=== PATIENT | female | born 1945 | race Caucasian/White ===

== ENCOUNTER 2016-09-03 15:49 | Observation (INO) | payer MEDICARE, BC ==
[2016-09-03] MEDS ORDERED: Sodium Chloride 0.9% 10 ML Syringe FLUSH PRN (16:24)
[2016-09-03] MEDS ORDERED: Sodium Chloride 0.9% 2.5 ML Syringe FLUSH PRN (16:24)
[2016-09-03] MEDS ORDERED: Sodium Chloride 0.9% 1,000 ML IV SCH ×2 (16:30→18:30)
--- NOTE | 2016-09-03 16:30 | EDM.PDOC ---
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 Past medical history: As per history of present illness and as reviewed below otherwise noncontributory. Surgical history: As per history of present illness and as reviewed below otherwise noncontributory. Social history: No reported history of drug or alcohol abuse. Family history: As per history of present illness and as reviewed below otherwise noncontributory. Physical exam: HEENT: Atraumatic, normocephalic, pupils reactive, negative for conjunctival pallor or scleral icterus, mucous membranes moist, throat clear, neck supple, nontender, trachea midline. Lungs: Clear to auscultation, breath sounds equal bilaterally, chest nontender. Heart: S1S2, regular, negative for clicks, rubs, or JVD. Abdomen: Soft, nondistended, nontender. Negative for masses or hepatosplenomegaly. Negative for costovertebral tenderness. Pelvis: Stable nontender. Genitourinary: Deferred. Rectal: Deferred. Extremities: Atraumatic, negative for cords or calf pain. Neurovascular unremarkable. Neuro: Awake, alert, oriented. Cranial nerves II through XII unremarkable. Cerebellum unremarkable. Motor and sensory unremarkable throughout. Exam nonfocal. Diagnostics: CBC CMP troponin chest x-ray EKG CT brain urinalysis Therapeutics: Saline at 125 cc Impression: #1 generalized weakness #2 history of left hemiparesis resolved #3 migraine headache Definitive disposition and diagnosis as appropriate pending reevaluation and review of above. 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 Neurological History: Reports: Migraines, Other (See Below) Other Neuro History: [place] Psychiatric History: Reports: None Endocrine/Metabolic History: Reports: None Hematologic History: Reports: None Immunologic History: Reports: None Oncologic (Cancer) History: Reports: Breast Dermatologic History: Reports: None - Past Surgical History Head Surgeries/Procedures: Reports: None Female Surgical History: Reports: Breast Biopsy Social & Family History - Family History Family Medical History: Noncontributory - Tobacco Use Smoking Status *Q: Never Smoker Second Hand Smoke Exposure: No - Caffeine Use Caffeine Use: Reports: Tea - Alcohol Use Days Per Week of Alcohol Use: 0 - Recreational Drug Use Recreational Drug Use: No ED ROS GENERAL - Review of Systems Review Of Systems: ROS reveals no pertinent complaints other than HPI. ED EXAM, GENERAL - Physical Exam Exam: See Below (See dictation) Course - Vital Signs Last Recorded V/S: Last Vital Signs Temp 36.8 C 09/03/16 16:02 Pulse 83 09/03/16 16:02 Resp 16 09/03/16 16:02 BP 123/73 09/03/16 16:02 Pulse Ox 94 L 09/03/16 16:02 - Orders/Labs/Meds Orders: Active Orders 24 hr Category Date Time Status Patient Status [ADT] Routine ADT 09/03/16 18:20 Active Ambulate [RC] PER UNIT ROUTINE Care 09/03/16 18:22 Active Antiembolic Devices [RC] PER UNIT ROUTINE Care 09/03/16 18:22 Active Cardiac Monitoring [RC] . DIRECTED Care 09/03/16 16:23 Active EKG Documentation Completion [RC] STAT Care 09/03/16 16:23 Active Oxygen Therapy [RC] PRN Care 09/03/16 18:20 Active Pulse Oximetry [RC] ASDIRECTED Care 09/03/16 16:23 Active Up With Assistance [RC] ASDIRECTED Care 09/03/16 18:20 Active VTE/DVT Education [RC] PER UNIT ROUTINE Care 09/03/16 18:20 Active Vital Signs [RC] Q4H Care 09/03/16 18:20 Active Regular Diet [DIET] Diet 09/03/16 Breakfast Active Chest 1V Frontal [CR] Stat Exams 09/03/16 16:24 Taken Head wo Cont [CT] Stat Exams 09/03/16 16:24 Taken Sodium Chloride 0.9% [Normal Saline] 1,000 ml Med 09/03/16 18:30 Ordered IV ASDIRECTED Sodium Chloride 0.9% [Normal Saline] 1,000 ml Med 09/03/16 16:30 Active IV STAT Sodium Chloride 0.9% [Saline Flush] Med 09/03/16 16:24 Active 10 ml FLUSH ASDIRECTED PRN Sodium Chloride 0.9% [Saline Flush] Med 09/03/16 16:24 Active 2.5 ml FLUSH ASDIRECTED PRN Saline Lock Insert [OM.PC] Stat Oth 09/03/16 16:23 Ordered Sequential Compression Device [OM.PC] Per Unit Routine Oth 09/03/16 18:22 Ordered Resuscitation Status Routine Resus Stat 09/03/16 18:20 Ordered Medication Orders Sodium Chloride (Normal Saline) 1,000 mls @ 125 mls/hr IV STAT DOREEN Sodium Chloride (Normal Saline) 1,000 mls @ 75 mls/hr IV ASDIRECTED DOREEN Sodium Chloride (Saline Flush) 10 ml FLUSH ASDIRECTED PRN PRN Reason: Keep Vein Open Sodium Chloride (Saline Flush) 2.5 ml FLUSH ASDIRECTED PRN PRN Reason: Keep Vein Open Labs: Laboratory Tests 09/03/16 09/03/16 09/03/16 Range/Units 16:20 16:26 16:26 WBC 8.33 (4.0-11.0) K/uL RBC 4.68 (4.30-5.90) M/uL Hgb 15.0 (12.0-16.0) g/dL Hct 44.2 (36.0-46.0) % MCV 94.4 (80.0-98.0) fL MCH 32.1 H (27.0-32.0) pg MCHC 33.9 (31.0-37.0) g/dL RDW Std Deviation 44.9 (28.0-62.0) fl RDW Coeff of Fatou 13 (11.0-15.0) % Plt Count 233 (150-400) K/uL MPV 9.30 (7.40-12.00) fL Neut % (Auto) 54.5 (48.0-80.0) % Lymph % (Auto) 31.3 (16.0-40.0) % [place] % (Auto) 10.6 (0.0-15.0) % Eos % (Auto) 3.1 (0.0-7.0) % Baso % (Auto) 0.5 (0.0-1.5) % Neut # (Auto) 4.5 (1.4-5.7) K/uL Lymph # (Auto) 2.6 H (0.6-2.4) K/uL [place] # (Auto) 0.9 H (0.0-0.8) K/uL Eos # (Auto) 0.3 (0.0-0.7) K/uL Baso # (Auto) 0.0 (0.0-0.1) K/uL Nucleated RBC % 0.0 /100WBC Nucleated RBCs # 0 K/uL Sodium 139 (136-146) mmol/L Potassium 4.3 (3.5-5.1) mmol/L Chloride 106 (98-110) mmol/L Carbon Dioxide 26 (21-31) mmol/L BUN 17 (6.0-23.0) mg/dL Creatinine 0.8 (0.6-1.5) mg/dL Est Cr Clr Drug Dosing 49.38 mL/min Estimated GFR (MDRD) > 60.0 ml/min Glucose 89 (60-110) mg/dL Calcium 9.6 (8.8-10.8) mg/dL Total Bilirubin 0.5 (0.1-1.5) mg/dL AST 25 (5-40) IU/L ALT 26 (8-54) IU/L Alkaline Phosphatase 50 (40-150) Troponin I (0.0-0.29) NG/ML Total Protein 7.3 (6.0-8.0) g/dL Albumin 4.4 (3.4-4.8) g/dL Globulin 2.9 (2.0-3.5) g/dL Albumin/Globulin Ratio 1.5 (1.3-2.8) Urine Color YELLOW Urine Appearance CLEAR Urine pH 6.5 (5.0-8.0) Ur Specific [place] <= 1.005 (1.001-1.035) Urine Protein NEGATIVE (NEGATIVE) mg/dL Urine Glucose (UA) NEGATIVE (NEGATIVE) mg/dL Urine Ketones NEGATIVE (NEGATIVE) mg/dL Urine Occult Blood NEGATIVE (NEGATIVE) Urine Nitrite NEGATIVE (NEGATIVE) Urine Bilirubin NEGATIVE (NEGATIVE) Urine Urobilinogen 0.2 (<2.0) EU/dL Ur Leukocyte Esterase NEGATIVE (NEGATIVE) Urine RBC 0-2 (0-2/HPF) Urine WBC 0-1 (0-5/HPF) Ur Epithelial Cells FEW (NONE-FEW) Urine Bacteria RARE (NEGATIVE) 09/03/16 Range/Units 16:26 WBC (4.0-11.0) K/uL RBC (4.30-5.90) M/uL Hgb (12.0-16.0) g/dL Hct (36.0-46.0) % MCV (80.0-98.0) fL MCH (27.0-32.0) pg MCHC (31.0-37.0) g/dL RDW Std Deviation (28.0-62.0) fl RDW Coeff of Fatou (11.0-15.0) % Plt Count (150-400) K/uL MPV (7.40-12.00) fL Neut % (Auto) (48.0-80.0) % Lymph % (Auto) (16.0-40.0) % [place] % (Auto) (0.0-15.0) % Eos % (Auto) (0.0-7.0) % Baso % (Auto) (0.0-1.5) % Neut # (Auto) (1.4-5.7) K/uL Lymph # (Auto) (0.6-2.4) K/uL [place] # (Auto) (0.0-0.8) K/uL Eos # (Auto) (0.0-0.7) K/uL Baso # (Auto) (0.0-0.1) K/uL Nucleated RBC % /100WBC Nucleated RBCs # K/uL Sodium (136-146) mmol/L Potassium (3.5-5.1) mmol/L Chloride (98-110) mmol/L Carbon Dioxide (21-31) mmol/L BUN (6.0-23.0) mg/dL Creatinine (0.6-1.5) mg/dL Est Cr Clr Drug Dosing mL/min Estimated GFR (MDRD) ml/min Glucose (60-110) mg/dL Calcium (8.8-10.8) mg/dL Total Bilirubin (0.1-1.5) mg/dL AST (5-40) IU/L ALT (8-54) IU/L Alkaline Phosphatase (40-150) Troponin I < 0.10 (0.0-0.29) NG/ML Total Protein (6.0-8.0) g/dL Albumin (3.4-4.8) g/dL Globulin (2.0-3.5) g/dL Albumin/Globulin Ratio (1.3-2.8) Urine Color Urine Appearance Urine pH (5.0-8.0) Ur Specific [place] (1.001-1.035) Urine Protein (NEGATIVE) mg/dL Urine Glucose (UA) (NEGATIVE) mg/dL Urine Ketones (NEGATIVE) mg/dL Urine Occult Blood (NEGATIVE) Urine Nitrite (NEGATIVE) Urine Bilirubin (NEGATIVE) Urine Urobilinogen (<2.0) EU/dL Ur Leukocyte Esterase (NEGATIVE) Urine RBC (0-2/HPF) Urine WBC (0-5/HPF) Ur Epithelial Cells (NONE-FEW) Urine Bacteria (NEGATIVE) Meds: Medications Generic Name Dose Route Start Last Admin Trade Name Freq PRN Reason Stop Dose Admin Sodium Chloride 1,000 mls @ 125 mls/hr 09/03/16 16:30 Normal Saline IV STAT DOREEN Sodium Chloride 1,000 mls @ 75 mls/hr 09/03/16 18:30 Normal Saline IV ASDIRECTED DOREEN Sodium Chloride 10 ml 09/03/16 16:24 Saline Flush FLUSH ASDIRECTED PRN Keep Vein Open Sodium Chloride 2.5 ml 09/03/16 16:24 Saline Flush FLUSH ASDIRECTED PRN Keep Vein Open Departure - Departure Time of Disposition: 18:24 Disposition: Refer to Observation Condition: good Clinical Impression: Migraine, Weak - Discharge Information Forms: ED Department Discharge - My Orders Last 24 Hours: My Active Orders 09/03/16 16:23 Cardiac Monitoring [RC] . DIRECTED EKG Documentation Completion [RC] STAT Pulse Oximetry [RC] ASDIRECTED Saline Lock Insert [OM.PC] Stat 09/03/16 16:24 Chest 1V Frontal [CR] Stat Head wo Cont [CT] Stat Sodium Chloride 0.9% [Saline Flush] 10 ml FLUSH ASDIRECTED PRN Sodium Chloride 0.9% [Saline Flush] 2.5 ml FLUSH ASDIRECTED PRN 09/03/16 16:30 Sodium Chloride 0.9% [Normal Saline] 1,000 ml IV STAT - Assessment/Plan Last 24 Hours: My Active Orders 09/03/16 16:23 Cardiac Monitoring [RC] . DIRECTED EKG Documentation Completion [RC] STAT Pulse Oximetry [RC] ASDIRECTED Saline Lock Insert [OM.PC] Stat 09/03/16 16:24 Chest 1V Frontal [CR] Stat Head wo Cont [CT] Stat Sodium Chloride 0.9% [Saline Flush] 10 ml FLUSH ASDIRECTED PRN Sodium Chloride 0.9% [Saline Flush] 2.5 ml FLUSH ASDIRECTED PRN 09/03/16 16:30 Sodium Chloride 0.9% [Normal Saline] 1,000 ml IV STAT
[2016-09-03 17:06] LABS: CHLORIDE,CL 106 mmol/L (98-110); SODIUM,NA 139 mmol/L (136-146)
[2016-09-03] MEDS ORDERED: Ibuprofen 600 MG Tab PO PRN (20:06)
[2016-09-04 05:25] LABS: CHLORIDE,CL 112 mmol/L (98-110); SODIUM,NA 141 mmol/L (136-146)
--- NOTE | 2016-09-04 10:52 | CR ---
EXAM DATE: 09/03/16 PATIENT'S AGE: 71 Patient: EDDIE WHITNEY Facility: [place], [place] Site . Site : 1945 Study: XRay Chest [id number]/1/2017 5:03:16 PM Ordering Physician: Hung Brown Final Report: INDICATIONS: Pain. Shortness of breath. TECHNIQUE: Chest 1 view portable. COMPARISON: Chest radiograph December 04, 2015. FINDINGS: No pneumothorax, pleural effusion or airspace consolidation. Cardiac and mediastinal contours are within normal limits. Upper abdomen and osseous structures show no acute abnormality. IMPRESSION: No evidence of acute cardiopulmonary disease. Dictated by Fracisco Coleman MD @ 09/03/2016 5:36:22 PM Dictated by: Fracisco Coleman MD @ 09/03/2016 17:36:30 (Electronic Signature) Report Signed by Proxy. [facility]
--- NOTE | 2016-09-04 10:57 | CT ---
EXAM DATE: 09/03/16 PATIENT'S AGE: 71 Patient: EDDIE WHITNEY Facility: [place], [place] Site . Site : 1945 Study: CT Head [id number]/1/2017 5:13:44 PM Ordering Physician: Hung Brown Final Report: INDICATION: Pain, weakness, nausea. 71-year-old female. TECHNIQUE: CT head without i.v. contrast. COMPARISON: None FINDINGS: Business Applications Manager CT images: Lateral certified adapted physical educator CT image unremarkable. Calvarium grossly intact. CSF spaces: Within normal limits for age. Brain parenchyma: The brain parenchyma is normal in appearance with preservation of the rivers-white differentiation. No sign of mass, hemorrhage, or midline shift seen. Skull base and calvarium: The visualized paranasal sinuses are well aerated. The mastoid air cells are clear. The visualized orbits are grossly unremarkable. No skull fractures are seen. IMPRESSION: 1. No evidence of acute infarction, intracranial hemorrhage, or mass effect seen. Dictated by Neil Gustafson MD @ 09/03/2016 6:13:18 PM Dictated by: Neil Gustafson MD @ 09/03/2016 18:13:24 (Electronic Signature) Report Signed by Proxy. [facility]
[2016-09-04 12:39] VITALS: BP 131/90
--- NOTE | 2016-09-04 13:08 | PCM.HP ---
H&P History of Present Illness - General Date of Service: 09/04/16 Source of Information: Patient, Family History Limitations: Reports: No Limitations - History of Present Illness Initial Comments - Free Text/Narative: The patient is a 71-year-old lady who is presented to the emergency department primarily out of concern for left arm weakness. The patient has been having migraine headaches and she is felt dizzy and what has worried patient more his left arm weakness. 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 Patient had been totally paralyzed. The patient does have a history of migraine headaches that she has had for decades and she has pain primarily in the left side of her head which radiates into the right side. She does have some to visual disturbances. The patient says that the generalized weakness has become more profound and she also has had a concern for photophobia or light sensitivity. The patient has been dizzy occasionally without syncopal episodes. The patient has denied any nausea or vomiting. No gait disturbances. She has been in her usual state of health up at the present time. Onset of Symptoms: Reports: Gradual Duration of Symptoms: Reports: Day(s):, Improving Location: Reports: Generalized Severity: Moderate Improves with: Reports: None Worsens with: Reports: None Associated Symptoms: Reports: Weakness Headache Pain Score (Numeric/FACES): 8 - Related Data Allergies/Adverse Reactions: Allergies Allergy/AdvReac Type Severity Reaction Status Date / Time No Known Allergies Allergy Verified 08/07/14 14:54 Home Medications: Home Meds Tamoxifen [Nolvadex] 20 mg PO DAILY 08/07/14 [History] Past Medical History HEENT History: Reports: Impaired Vision Cardiovascular History: Reports: None Respiratory History: Reports: None Gastrointestinal History: Reports: None Genitourinary History: Reports: None 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: Neurological History: Reports: Migraines, Other (See Below) Other Neuro History: Guill[place] Psychiatric History: Reports: None Endocrine/Metabolic History: Reports: None Hematologic History: Reports: None Immunologic History: Reports: None Oncologic (Cancer) History: Reports: Breast Dermatologic History: Reports: None - Past Surgical History Head Surgeries/Procedures: Reports: None Female Surgical History: Reports: Breast Biopsy Oncologic Surgical History: Reports: Biopsy of Breast Social & Family History - Family History Family Medical History: Noncontributory - Tobacco Use Smoking Status *Q: Never Smoker Second Hand Smoke Exposure: No - Caffeine Use Caffeine Use: Reports: None - Alcohol Use Days Per Week of Alcohol Use: 0 - Recreational Drug Use Recreational Drug Use: No H&P Review of Systems - Review of Systems: Review Of Systems: See Below General: Reports: Weakness, Fatigue HEENT: Reports: No Symptoms Pulmonary: Reports: No Symptoms Cardiovascular: Reports: No Symptoms Gastrointestinal: Reports: No Symptoms Genitourinary: Reports: No Symptoms Musculoskeletal: Reports: No Symptoms Skin: Reports: No Symptoms Psychiatric: Reports: No Symptoms Neurological: Reports: Dizziness, Tingling Hematologic/Lymphatic: Reports: No Symptoms Immunologic: Reports: No Symptoms Exam - Exam Exam: See Below - Vital Signs Vital Signs: Last Vital Signs Temp 36.1 C 09/04/16 12:00 Pulse 69 09/04/16 12:00 Resp 16 09/04/16 12:00 BP 131/90 09/04/16 12:00 Pulse Ox 98 09/04/16 12:00 Weight: 62.6 kg - Exam Quality Assessment: No: Supplemental Oxygen General: Alert, Oriented, Cooperative HEENT: Conjunctiva Clear, EACs Clear, Mucosa Moist & [place], Nares Patent Neck: Supple, Trachea Midline Lungs: Clear to Auscultation, Normal Respiratory Effort Cardiovascular: Regular Rate, Regular Rhythm, Normal S1, Normal S2 Abdomen: Normal Bowel Sounds, Soft. No: Distention Back Exam: Decreased Range of Motion Extremities: Normal Inspection Skin: Warm, Dry, Intact Neurological: Cranial Nerves Intact, Strength Equal Bilateral, Normal Speech, Sensation Intact. No: Focal Deficit Psychiatric: Alert, Normal Affect, Normal Mood - Patient Data Lab Results last 24 hrs: Laboratory Results - last 24 hr 09/04/16 09/04/16 Range/Units 04:20 04:20 WBC 5.59 (4.0-11.0) K/uL RBC 4.13 L (4.30-5.90) M/uL Hgb 12.9 (12.0-16.0) g/dL Hct 39.0 (36.0-46.0) % MCV 94.4 (80.0-98.0) fL MCH 31.2 (27.0-32.0) pg MCHC 33.1 (31.0-37.0) g/dL RDW Std Deviation 45.4 (28.0-62.0) fl RDW Coeff of Fatou 13 (11.0-15.0) % Plt Count 218 (150-400) K/uL MPV 9.40 (7.40-12.00) fL Neut % (Auto) 43.0 L (48.0-80.0) % Lymph % (Auto) 42.6 H (16.0-40.0) % [place] % (Auto) 9.1 (0.0-15.0) % Eos % (Auto) 4.8 (0.0-7.0) % Baso % (Auto) 0.5 (0.0-1.5) % Neut # (Auto) 2.4 (1.4-5.7) K/uL Lymph # (Auto) 2.4 (0.6-2.4) K/uL [place] # (Auto) 0.5 (0.0-0.8) K/uL Eos # (Auto) 0.3 (0.0-0.7) K/uL Baso # (Auto) 0.0 (0.0-0.1) K/uL Nucleated RBC % 0.0 /100WBC Nucleated RBCs # 0 K/uL Sodium 141 (136-146) mmol/L Potassium 4.4 (3.5-5.1) mmol/L Chloride 112 H (98-110) mmol/L Carbon Dioxide 22 (21-31) mmol/L BUN 15 (6.0-23.0) mg/dL Creatinine 0.7 (0.6-1.5) mg/dL Est Cr Clr Drug Dosing 56.49 mL/min Estimated GFR (MDRD) > 60.0 ml/min Glucose 82 (60-110) mg/dL Calcium 8.2 L (8.8-10.8) mg/dL Result Diagrams: 09/04/16 04:20 09/04/16 04:20 *Q Meaningful Use (ADM) - VTE *Q VTE Criteria *Q: - VTE Risk Assess *Q Each Risk Factor Represents 2 Points: Age 60 - 74 Years Total Score 2 Point Risk Factors: 2 - Stroke *Q Stroke Criteria *Q: - AMI *Q AMI Criteria *Q: - Problem List (1) Vertigo SNOMED Code(s): 917984535 ICD Code: R42 - DIZZINESS AND GIDDINESS Status: Acute Priority: High Current Visit: Yes (2) Migraine SNOMED Code(s): 47973989 ICD Code: G43.909 - MIGRAINE, UNSP, NOT INTRACTABLE, WITHOUT STATUS MIGRAINOSUS Status: Chronic Priority: Medium Current Visit: Yes (3) Weak SNOMED Code(s): 64322769 ICD Code: R53.1 - WEAKNESS Status: Chronic Priority: High Current Visit : Yes Problem List Initiated/Reviewed/Updated: Yes Orders Last 24hrs: Active Orders 24 hr Category Date Time Status Mushroom 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 This will be with fluid support, imaging and monitoring. I suspect that the patient's symptoms are likely secondary to work she had been performing earlier without sufficient hydration. The patient will have an MRI of her brain and that this is normal and the patient's symptoms have resolved she should be appropriate for discharge home. The patient also be kept on a regular diet as tolerated along with IV and or saline and telemetry. The patient has been encouraged to ambulate as well as use antiembolic devices to help with DVT prophylaxis. The patient is doing well otherwise and results of the MRI of her brain are pending and I suspect that this is normal and I feel that the patient should be appropriate for discharge later today. Patient's treatment plan will be adjusted as information indicates.
--- NOTE | 2016-09-04 15:02 | MR ---
EXAM DATE: 09/03/16 PATIENT'S AGE: 71 Patient: EDDIE WHITNEY Facility: [place], [place] Site . Site : 1945 Study: MRI Head [id number]/2/2017 12:15:25 PM Ordering Physician: Lulu Toussaint Final Report: INDICATION: 71-year-old female. Weakness, numbness, fatigue and migraine headache. TECHNIQUE: Volumetric 3 plane T1 weighted, T2 axial, FLAIR axial, diffusion axial, ADC map axial and susceptibility weighted axial images acquired. COMPARISON: Noncontrast CT September 03, 2016. FINDINGS: There is no restricted diffusion. Ventricles are normal. Few white matter foci of T2 prolongation present in the cerebral hemispheres. There is a perivascular fluid space in the left basal ganglia. There is T2 prolongation in the posterior lateral aspect the left lentiform nucleus. Brainstem is normal. A venous angioma situated in the left cerebellum. Cerebellar hemispheres are otherwise unremarkable. Cerebellar tonsils are normally situated. Optic chiasm and pituitary are normal. Benign mucous retention cyst at the floor of the right maxillary sinus. Paranasal and mastoid air cells are otherwise clear. Usual flow voids in the [place] of [place]. Intraorbital tissues are normal. IMPRESSION: 1. No change, no restricted diffusion and no acute intracranial finding. 2. Mild microvascular ischemic disease. 3. Benign perivascular fluid spaces in left basal ganglia. 4. T2 prolongation in the posterior lateral aspect the left lentiform nucleus is suggestive microvascular ischemic disease. 5. Incidental note of a venous angioma in the left cerebellum. Dictated by Cameron Silveira MD @ 09/04/2016 12:47:09 PM Dictated by: Cameron Silveira MD @ 09/04/2016 12:49:15 (Electronic Signature) Report Signed by Proxy. [facility]
== END 2016-09-04 16:20 | disposition home or self-care (01) ==
LOC: MW.ED 15:49 → MW.ICU 18:47
PROVIDERS: ADMIT Internal Medicine; ATTEND Internal Medicine
DX: R42 Dizziness and giddiness (principal); G43.909 Migraine, unspecified, not intractable, without status migrainosus; R53.1 Weakness; G61.0 Guillain-Barre syndrome; Q28.3 Other malformations of cerebral vessels; Z85.3 Personal history of malignant neoplasm of breast; Z98.890 Other specified postprocedural states; Z79.899 Other long term (current) drug therapy
CPT/HCPCS: 36415; 70450; 70551; 71010; 80048; 80053; 81001; 84484; 85025; 93005; 96360; 96361; 99285; J7040; G0378

== ENCOUNTER 2020-03-07 07:19 | Day surgery (SDC) | payer MEDICARE, BC ==
[~2020-03-07 07:19] MED LIST: Lactated Ringers 1,000 ML IV SCH; Sodium Chloride 0.9% 10 ML SDV IV PRN; Sodium Chloride 0.9% 10 ML Syringe FLUSH PRN; Sodium Chloride 0.9% 2.5 ML Syringe FLUSH PRN
--- NOTE | 2020-03-07 08:08 | PCM.PREANE ---
Preanesthetic Assessment - Anesthesia/Transfusion/Family Hx Anesthesia History: Prior Anesthesia Reaction Other Type of Anesthesia Reaction Comment: delayed awakening Transfusion History: No Prior Transfusion(s) - Review of Systems General: No Symptoms Pulmonary: No Symptoms Cardiovascular: No Symptoms Gastrointestinal: No Symptoms Neurological: No Symptoms Other: Reports: None - Physical Assessment NPO Status Date: 03/06/20 Vital Signs: Last Vital Signs Temp 96.8 F L 03/07/20 07:27 Pulse 83 03/07/20 07:27 Resp 15 03/07/20 07:27 BP 122/73 03/07/20 07:27 Pulse Ox 93 L 03/07/20 07:27 Height: 5 ft 1 in Weight: 59.421 kg ASA Class: 2 Mental Status: Alert & Oriented x3 Airway Class: Mallampati = 2 ROM/Head Extension: Full Lungs: Clear to Auscultation, Normal Respiratory Effort Cardiovascular: Regular Rate, Regular Rhythm - Allergies Allergies/Adverse Reactions: Allergies Allergy/AdvReac Type Severity Reaction Status Date / Time No Known Allergies Allergy Verified 03/01/20 13:09 - Blood Blood Available: No - Anesthesia Plan Pre-Op Medication Ordered: None - Acknowledgements Anesthesia Type Planned: General Anesthesia Pt an Appropriate Candidate for the Planned Anesthesia: Yes Alternatives and Risks of Anesthesia Discussed w Pt/Guardian: Yes Pt/Guardian Understands and Agrees with Anesthesia Plan: Yes Additional Comments: PMH: guillain [place] 2000, 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, migraines, hx breast ca on L, rx with lumpectomy PLAN: tiva PreAnesthesia Questionnaire HEENT History: Reports: Impaired Vision Other HEENT History: wears glasses Cardiovascular History: Reports: None Respiratory History: Reports: None Gastrointestinal History: Reports: None Genitourinary History: Reports: None [employer] History: Reports: Musculoskeletal History: Reports: Fracture Other Musculoskeletal History: right tibia 2015 Neurological History: Reports: Migraines, Other (See Below) Other Neuro History: [place] Psychiatric History: Reports: None Endocrine/Metabolic History: Reports: Hypothyroidism Hematologic History: Reports: None Immunologic History: Reports: None Oncologic (Cancer) History: Reports: Breast Other Oncologic History: states had left breast cancer; had lumpectomy and did radiation Dermatologic History: Reports: None - Infectious Disease History Infectious Disease History: Reports: Chicken Pox Other Infectious Disease History: when a child - Past Surgical History Head Surgeries/Procedures: Reports: None HEENT Surgical History: Reports: Tonsillectomy Cardiovascular Surgical History: Reports: None GI Surgical History: Reports: Colonoscopy Female Surgical History: Reports: Breast Biopsy Endocrine Surgical History: Reports: None Neurological Surgical History: Reports: None Musculoskeletal Surgical History: Reports: None Oncologic Surgical History: Reports: Biopsy of Breast, Lumpectomy - SUBSTANCE USE Tobacco Use Status *Q: Never Tobacco User - HOME MEDS Home Medications: Home Meds Aspirin [Lo-Dose Aspirin EC] 1 tab PO DAILY 03/01/20 [History] Calcium Citrate/Vitamin D3 [Calcitrate + Vit D Cap (315 MG/250 UNITS)] 1 tab PO DAILY 03/01/20 [History] Levothyroxine 1 tab PO DAILY 03/01/20 [History] Lutein/Minerals/Vit A,C & E [Ocuvite] 1 tab PO DAILY 03/01/20 [History] Lysine HCl [l-Lysine] 500 mg PO DAILY 03/01/20 [History] Multivitamin [Multi-Vitamin Daily] 1 tab PO DAILY 03/01/20 [History] - CURRENT (IN HOUSE) MEDS Current Meds: Current Medications Lactated Ringer's (Ringers, Lactated) 1,000 mls @ 125 mls/hr IV ASDIRECTED DOREEN Last Admin: 03/07/20 07:50 Dose: 125 mls/hr Documented by: Sodium Chloride (Saline Flush) 10 ml FLUSH ASDIRECTED PRN PRN Reason: Keep Vein Open Sodium Chloride (Saline Flush) 2.5 ml FLUSH ASDIRECTED PRN PRN Reason: Keep Vein Open Sodium Chloride (Saline Flush) 10 ml FLUSH ASDIRECTED PRN PRN Reason: Keep Vein Open Sodium Chloride (Saline Flush) 2.5 ml FLUSH ASDIRECTED PRN PRN Reason: Keep Vein Open Sodium Chloride (Normal Saline) 10 ml IV ASDIRECTED PRN PRN Reason: IV Use
[2020-03-07] MEDS ORDERED: Propofol 200 MG/20 ML SDV ONE (08:31)
[2020-03-07] MEDS ORDERED: fentaNYL 100 MCG/2 ML SDV ONE (08:31)
[2020-03-07] MEDS ORDERED: Lidocaine 2% 5 ML SDV ONE (08:31)
--- NOTE | 2020-03-07 09:25 | PCM.OPNOTE ---
- General Post-Op/Procedure Note Date of Surgery/Procedure: 03/07/20 Operative Procedure(s): Diagnostic colonoscopy Findings: Diverticulosis, grade IV hemorrhoids Pre Op Diagnosis: Positive cologuard test Post-Op Diagnosis: Diverticulosis, Grade IV hemorrhoids Anesthesia Technique: [facility] [place] Primary Surgeon: Gloria Vargas Condition: Good
[2020-03-07 09:44] VITALS: BP 154/67; PULSE 62
--- NOTE | 2020-03-07 10:23 | PCM48HPAN ---
Post Anesthesia Note - EVALUATION WITHIN 48HRS OF ANESTHETIC Vital Signs in Normal Range: Yes Patient Participated in Evaluation: Yes Respiratory Function Stable: Yes Airway Patent: Yes Cardiovascular Function Stable: Yes Hydration Status Stable: Yes Pain Control Satisfactory: Yes Nausea and Vomiting Control Satisfactory: Yes Mental Status Recovered: Yes Vital Signs: Last Vital Signs Temp 97.2 F 03/07/20 09:38 Pulse 62 03/07/20 09:38 Resp 14 03/07/20 09:38 BP 154/67 H 03/07/20 09:38 Pulse Ox 96 03/07/20 09:38
--- NOTE | 2020-03-07 10:23 | PCM.POSTAN ---
POST ANESTHESIA ASSESSMENT - MENTAL STATUS Mental Status: Alert, Oriented - VITAL SIGNS Vital Signs: Last Vital Signs Temp 97.2 F 03/07/20 09:38 Pulse 62 03/07/20 09:38 Resp 14 03/07/20 09:38 BP 154/67 H 03/07/20 09:38 Pulse Ox 96 03/07/20 09:38 - RESPIRATORY Respiratory Status: Respiratory Rate WNL, Airway Patent, O2 Saturation Stable - CARDIOVASCULAR CV Status: Pulse Rate WNL, Blood Pressure Stable - GASTROINTESTINAL GI Status: No Symptoms - POST OP HYDRATION Hydration Status: Adequate & Stable
--- NOTE | 2020-03-08 12:59 | OR ---
SURGEON: GLORIA VARGAS MD DATE OF PROCEDURE: 03/07/2020 PREOPERATIVE DIAGNOSIS: Positive Cologuard test. POSTOPERATIVE DIAGNOSES: 1. Diverticulosis. 2. Grade 4 hemorrhoids. PROCEDURE PERFORMED: Diagnostic colonoscopy. PRIMARY SURGEON: Gloria Vargas MD ANESTHESIA: MAC. INSTRUMENT USED: Olympus colonoscope. EXTENT OF EXAM: To the cecum. PREPARATION: Good. LIMITATIONS: None. INDICATIONS FOR EXAMINATION: The patient is a 74-year-old female who presents with a recent positive Cologuard test. I explained the need for diagnostic colonoscopy. We discussed the procedure; expected perioperative course; and risks including bleeding, infection, or damage to surrounding structures including perforation. The patient verbalized understanding and wishes to proceed. PROCEDURE IN DETAIL: The patient was brought into the endoscopy suite and placed in a left lateral decubitus position. A time-out was completed verifying the patient's name, age, date of , allergies, and procedure to be performed. Monitored anesthesia care was induced and continuous oxygen was provided via nasal cannula throughout the procedure. After adequate sedation was achieved, a digital rectal exam was performed. This exam revealed grade IV hemorrhoids. A well-lubricated colonoscope was inserted in the rectum and advanced under direct visualization to the level of the cecum. The cecum was identified by both visual and anatomic landmarks. A photograph was taken of the cecal cap; however, I was unable to retroflex the scope within the cecum due to looping of the scope more proximally. The scope was then fully withdrawn while examining the color, texture, anatomy, and integrity of the mucosa from the cecum to the anal canal. The patient was found to have diverticulosis throughout the sigmoid colon. The scope was brought into the rectum and retroflexed to allow visualization of the anal canal opening. The patient was noted to have enlarged hemorrhoidal tissue. The scope was removed. The procedure was terminated. The cecum to anus time was 8 minutes. The patient tolerated the procedure well and was transferred to the PACU in stable condition. ENDOSCOPIC DIAGNOSES: Grade 4 hemorrhoids, diverticulosis. RECOMMENDATIONS: Follow up in clinic in 2 weeks. BARBRA GLORIA /[id number]
== END 2020-03-07 10:14 | disposition home or self-care (01) ==
LOC: MW.SDS 07:19
PROVIDERS: ATTEND Surgery
DX: K57.30 Diverticulosis of large intestine without perforation or abscess without bleeding (principal); K64.3 Fourth degree hemorrhoids; G43.109 Migraine with aura, not intractable, without status migrainosus; M81.0 Age-related osteoporosis without current pathological fracture; E03.9 Hypothyroidism, unspecified; Z79.82 Long term (current) use of aspirin; Z79.899 Other long term (current) drug therapy; Z85.3 Personal history of malignant neoplasm of breast; Z98.890 Other specified postprocedural states
CPT/HCPCS: 45378; J2001; J2704; J7120; J3010